=== PATIENT | female | born 1985 | race Caucasian/White ===

== ENCOUNTER 2019-10-29 12:46 | Emergency (ER) | payer SELFPAY ==
[~2019-10-29] VITALS: Ht 165.1 cm; Wt 152.3 kg
[2019-10-29 12:55] VITALS: BP 133/87; TEMP 97.8
[2019-10-29] MEDS ORDERED: FLONASE NASAL S16 GM NS (13:34)
[2019-10-29] MEDS ORDERED: ALLEGRA 180MG180 MG PO (13:34)
[2019-10-29 13:50] VITALS: PULSE 99
== END 2019-10-29 13:50 | disposition home or self-care (01) ==
LOC: COL.ER 12:46
DX: J30.9 Allergic rhinitis, unspecified (principal); E66.01 Morbid (severe) obesity due to excess calories; Z68.43 Body mass index [BMI] 50.0-59.9, adult; Z79.51 Long term (current) use of inhaled steroids

== ENCOUNTER 2019-11-17 16:39 | Emergency (ER) | payer SELFPAY ==
[~2019-11-17] VITALS: Ht 165.1 cm; Wt 152.3 kg
[~2019-11-17 16:39] MED LIST: ALLEGRA 180MG180 MG PO; FLONASE NASAL S16 GM NS
[2019-11-17 16:46] VITALS: BP 124/92; TEMP 98.2
[2019-11-17 17:02] LABS: COLLECTION METHOD CLEAN CATCH
[2019-11-17 17:13] LABS: MUCOUS Present /lpf; PH 6 (5-8); URINE APPEARANCE Hazy; URINE BACTERIA None Seen /hpf; URINE BILIRUBIN Negative (NEGATIVE); URINE BLOOD 2+ (NEGATIVE); URINE COLOR Yellow; URINE GLUCOSE Negative (NEGATIVE); URINE KETONE Negative (NEGATIVE); URINE LEUKOCYTE ESTERASE 1+ (NEGATIVE); URINE NITRATE Negative (NEGATIVE); URINE PROTEIN(semi-quant) 1+ (NEGATIVE); URINE RBC 0-2 /hpf; URINE UROBILINOGEN Negative (NEGATIVE)
[2019-11-17] MEDS ORDERED: BACTRIM DS 8001 TAB PO (17:28)
[2019-11-17 17:40] VITALS: PULSE 123
== END 2019-11-17 17:40 | disposition home or self-care (01) ==
LOC: COL.ER 16:39
PROVIDERS: Emergency Medicine
DX: N39.0 Urinary tract infection, site not specified (principal); E11.9 Type 2 diabetes mellitus without complications; E66.9 Obesity, unspecified; Z88.8 Allergy status to other drugs, medicaments and biological substances; Z68.43 Body mass index [BMI] 50.0-59.9, adult; Z79.51 Long term (current) use of inhaled steroids

== ENCOUNTER 2019-11-24 16:05 | Emergency (ER) | payer SELFPAY ==
[~2019-11-24] VITALS: Ht 165.1 cm; Wt 156.8 kg
[~2019-11-24 16:05] MED LIST changes: +BACTRIM DS 8001 TAB PO
[2019-11-24] MEDS ORDERED: CLEOCIN HCL300 MG PO (16:44)
[2019-11-24 17:00] VITALS: BP 110/81; PULSE 95; TEMP 98
[2019-11-24 17:42] LABS: STREP SCREEN NEGATIVE
== END 2019-11-24 17:07 | disposition home or self-care (01) ==
LOC: COL.ER 16:05
PROVIDERS: Physician Assistant
DX: J02.9 Acute pharyngitis, unspecified (principal); K08.89 Other specified disorders of teeth and supporting structures; E66.9 Obesity, unspecified; E11.9 Type 2 diabetes mellitus without complications; Z79.51 Long term (current) use of inhaled steroids